=== PATIENT | female | born 1990 | race Caucasian/White ===

== ENCOUNTER 2016-10-03 02:42 | Emergency (ER) | payer OTHER ==
[2016-10-03 02:26] LABS: URINE SOURCE CLEAN CATCH
[2016-10-03 02:30] LABS: URINE APPEARANCE CLOUDY; URINE BILIRUBIN NEG (NEG); URINE BLOOD NEG (NEG); URINE COLOR YELLOW; URINE GLUCOSE NEG (NEG); URINE KETONE NEG (NEG); URINE LEUKOCYTE ESTERASE TRACE (NEG); URINE NITRATE NEG (NEG); URINE PH 6.5 (5-8); URINE PROTEIN NEG (NEG); URINE SPECIFIC GRAVITY 1.035 (1.003-1.035)
[2016-10-03 02:33] LABS: CULTURE INDICATED? YES; URINE BACTERIA AUWI 2+ (NEGATIVE); URINE SQUAMOUS EPITHELIAL CELL MANY /[HPF]
[~2016-10-03 02:42] MED LIST: ALBUTEROL17 GM INH; ALBUTEROL20 ml INH; AMOXICILLIN PO; AMOXICILLIN250 MG PO; AMOXICILLIN500 M1 PO; AUGMENTIN PO; BACTRIM DS TABL1 TA1 PO; BACTRIM DS TABL1 TAB PO; BUSPAR PO; BUSPAR15 MG PO; CELEXA20 MG PO; CIPRO PO; DIFLUCAN PO; DOXYCYCLINE150 MG PO; ESCITALOPRAM OX20 MG PO; FLEXERIL PO; FLEXERIL10 M1 PO; IBUPROFEN PO; IRON PILL PO; LAMICTAL100 MG PO; LORTAB 10-5001 EACH PO; NAPROSYN375 MG PO; NAPROXEN PO; NO MEDICATIONS; NORCO1 TAB 10/3; PHENERGAN PO; PREDNISONE10 MG/DOSE PO; PRENATAL VITAMI1 TA3 PO; PROVENTIL17 GM; PYRIDIUM PO; RISPERDAL1 M1; ULTRAM PO; VOLTAREN75 MG PO; WAL-PROFEN200 M1 PO
[2016-10-03 02:43] LABS: BASOPHIL% 0.2 % (0-2.5); DIFF IND NO; EOSINOPHIL# 0.1 X10e3 (0-0.7); HEMATOCRIT 42.3 % (35.0-45.0); HEMOGLOBIN 13.9 gm/dL (12.0-16.0); LYMPHOCYTE# 1.1 X10e3 (1.0-3.5); MEAN CELL VOLUME 88.3 FL (83-96); MEAN CORPUSCULAR HGB CONC 32.9 g/dL (30-36); MEAN PLATELET VOLUME 10.1 FL (6.5-11.5); MONOCYTE# 0.8 X10e3 (0-1.0); NEUTROPHIL# 7.9 X10e3 (1.5-7.1); NEUTROPHIL% 79.8 % (40-75); PLATELET COUNT 180 X10e3 (140-420); RED BLOOD COUNT 4.79 X10e (3.90-5.30); RED CELL DISTRIBUTION WIDTH 13.2 % (11.0-15.5); WHITE BLOOD COUNT 9.8 X10e3 (4.0-10.5)
[2016-10-03 02:45] LABS: URBCS1 AUWI NEG /[HPF] (0-2)
[2016-10-03 03:06] LABS: ALKALINE PHOSPHATASE 86 U/L (32-92); ALT (SGPT) 19 U/L (10-40); AMYLASE 15 U/L (0-46); AST (SGOT) 19 U/L (10-42); BILIRUBIN, DIRECT 0.1 mg/dL (0.0-0.2); BILIRUBIN,INDIRECT 1.1 mg/dL (0.0-0.9); BILIRUBIN,TOTAL 1.2 mg/dL (0.2-2.0); BLOOD UREA NITROGEN 14 mg/dL (9-23); BUN/CREATININE RATIO 15.55; CALCIUM SERUM 8.8 mg/dL (8.4-10.2); CARBON DIOXIDE 25 mmol/L (22-31); CHLORIDE 104 mmol/L (100-111); CREATININE SERUM 0.9 mg/dL (0.6-1.4); GLOM FILT RATE Estimated ABOVE60 mL/min (>60); GLUCOSE FASTING 95 mg/dL (70-110); LIPASE 20 U/L (22-51); POTASSIUM 4.1 mmol/L (3.5-5.1); PROTEIN TOTAL SERUM 6.9 g/dL (6.0-8.3); SODIUM 136 mmol/L (135-145)
[2016-10-03 03:10] LABS: INFLUENZA A NEG (NEG); INFLUENZA B NEG (NEG)
== END 2016-10-03 04:05 | disposition home or self-care (01) ==
LOC: CED 02:42
PROVIDERS: Nurse Practitioner
DX: R11.2 Nausea with vomiting, unspecified (principal); R19.7 Diarrhea, unspecified; F31.9 Bipolar disorder, unspecified; Z90.49 Acquired absence of other specified parts of digestive tract; F17.210 Nicotine dependence, cigarettes, uncomplicated; Z79.899 Other long term (current) drug therapy
CPT/HCPCS: 36415; 80048; 80076; 81003; 82150; 83690; 84703; 85025; 87086; 87804; 96361; 96374; 96375; 99284; J1885; J2405

== ENCOUNTER 2016-11-01 17:56 | Emergency (ER) | payer OTHER ==
--- NOTE | ~2016-11-01 | CR111 ---
[facility] A Service of [facility] & [facility] RADIOLOGY TEXT RESULTS PATIENT: MORRIS GUTIERREZ LOCATION: [facility] : [birth year] UNIT #: [id number] AGE: [address]: Thuy Garcia APRN SEX: F ORDER DR: [id number] [facility] [address] [place], [place] [address] [id number] MR#: [id number] #: [id number] NAME: MORRIS GUTIERREZ. : 1990 SEX: F STUDY DATE/TIME: 11/01/2016 17:47 UNIT: [facility] ROOM: STUDY DESCRIPTION: CR Finger 2 View 3rd Rt Attending Physician: Thuy Garcia A.P.R.N. Referring Physician: Patricio Barcenas M.D. Ordering Physician: Mika Price M.D. Primary Care Physician: Patricio Barcenas M.D. MEDICAL IMAGING REPORT This report is preliminary unless electronic signature is present EXAM Right third finger series 11/01/2016 HISTORY 26-year-old female in the ED complaining of right third finger pain and swelling after injury. Struck finger against a wall. TECHNIQUE 3 view right third finger series was obtained. FINDINGS The examination is negative. No fracture, dislocation or other acute osseous abnormality. IMPRESSION Negative right third finger series. Dictated by... Marcos Conklin M.D. THIS IS AN ELECTRONICALLY VERIFIED REPORT Marcos Conklin M.D. at 11/04/2016 5:58 AM MIK/maggie TD: 11/02/2016 10:13 JOB #: [id number] MEDICAL IMAGING REPORT Page 1 of 1 COPY
== END 2016-11-01 18:45 | disposition home or self-care (01) ==
LOC: CFTX 17:56
DX: S60.031A Contusion of right middle finger without damage to nail, initial encounter (principal); J45.909 Unspecified asthma, uncomplicated; F31.9 Bipolar disorder, unspecified; W22.03XA Walked into furniture, initial encounter; Y92.009 Unspecified place in unspecified non-institutional (private) residence as the place of occurrence of the external cause; F17.210 Nicotine dependence, cigarettes, uncomplicated
CPT/HCPCS: 29130; 73140; 99283